=== PATIENT | female | born 1965 | race Caucasian/White ===

== ENCOUNTER → 2016-07-09 | Outpatient (CLI) | payer OTHER ==
[~2016-07-09] MED LIST: HYDR-5688 PO; OMEP20CA59 PO
[2016-07-09 14:00] LABS: BASO % 0.2 %; BASO ABS # 0.02 K/uL (0-0.2); COMPLETE YES; HEMATOCRIT 38.6 % (37-47); IG% 0.4 %; LYMPH % 32.6 %; LYMPH ABS # 2.73 K/uL (1.2-3.4); MEAN CELL VOLUME 91.3 fL (80-100); MEAN CORPUSCULAR HEMOGLOBIN 30.3 pg (25-34); MEAN CORPUSCULAR HGB CONC 33.2 g/dl (32-36); MEAN PLATELET VOLUME 9.3 fL (7.4-10.4); MONO % 6.8 %; PLATELET COUNT 358 K/uL (130-400); RED BLOOD COUNT 4.23 M/uL (4.2-5.4); WHITE BLOOD COUNT 8.38 K/uL (4.8-10.8)
[2016-07-09 14:05] LABS: ALT/SGPT 31 U/L (12-78); BLOOD UREA NITROGEN 15 mg/dl (7-18); BUN/CREATININE RATIO 20.5 (10-20); CARBON DIOXIDE 26 mmol/L (21-32); CHLORIDE 105 mmol/L (98-107); CHOLESTEROL 158 mg/dl (0-200); CREATININE 0.73 mg/dl (0.60-1.20); GLUCOSE 89 mg/dl (70-99); POTASSIUM 3.9 mmol/L (3.5-5.1); SODIUM 141 mmol/L (136-145); TRIGLYCERIDES 104 mg/dl (0-150); VERY LOW DENSITY LIPOPROT CALC 21 mg/dl
[2016-07-09 14:07] LABS: ALB/GLOB RATIO 1.2 (0.9-2); ALKALINE PHOSPHATASE 120 U/L (45-117); AST/SGOT 21 U/L (15-37); CHOLESTEROL/HDL RATIO 2.5; HDL CHOLESTEROL 64 mg/dl; LDL CHOLESTEROL CALCULATED 73 mg/dl
== END | disposition home or self-care (01) ==
LOC: C.LABSPEC 15:13 → MERGE 15:13
PROVIDERS: ATTEND Family Medicine
DX: K21.9 Gastro-esophageal reflux disease without esophagitis (principal); G47.00 Insomnia, unspecified; Z00.00 Encounter for general adult medical examination without abnormal findings

== ENCOUNTER 2016-09-12 09:46 | Day surgery (SDC) | payer OTHER ==
[2016-08-20 14:47] VITALS: BMI 32.0
--- NOTE | 2016-08-20 15:09 | PAT Medication Instructions ---
Service Date Aug 20, 2016. Current Home Medication List Omeprazole (Prilosec), 20 MG PO QAM Medication Instructions For Your Scheduled Surgery - Take the following medications the morning of surgery with a sip of water OTHERWISE NOTHING TO EAT OR DRINK AFTER MIDNIGHT: Omeprazole (Prilosec), 20 MG PO QAM If you have any questions please call us at [phone] or [phone] or [phone]
--- NOTE | 2016-08-20 15:46 | DIAGNOSTIC IMAGING REPORT ---
CHEST 2 VIEWS ROUTINE CLINICAL HISTORY: pat preoperative evaluation COMPARISON STUDY: No previous studies for comparison. FINDINGS: The bones soft tissues and hemidiaphragms are normal. The cardiomediastinal silhouette is normal. The lungs are clear. The pulmonary vasculature is normal. IMPRESSION: Negative chest. Electronically signed by: Sarath Abarca M.D. 08/20/2016 3:45 PM Dictated Date/Time: 08/20/2016 3:45 PM
[2016-08-20 16:10] LABS: BASO % 0.3 %; BASO ABS # 0.02 K/uL (0-0.2); COMPLETE YES; EOS % 2.2 %; HEMATOCRIT 40.6 % (37-47); IG% 0.1 %; LYMPH ABS # 3.44 K/uL (1.2-3.4); MEAN CELL VOLUME 92.5 fL (80-100); MEAN CORPUSCULAR HEMOGLOBIN 31.2 pg (25-34); MEAN CORPUSCULAR HGB CONC 33.7 g/dl (32-36); MEAN PLATELET VOLUME 9.4 fL (7.4-10.4); NEUT % 47.4 %; PLATELET COUNT 333 K/uL (130-400); RED BLOOD COUNT 4.39 M/uL (4.2-5.4); WHITE BLOOD COUNT 7.65 K/uL (4.8-10.8)
[2016-08-20 16:34] LABS: BUN/CREATININE RATIO 16.6 (10-20); CALCIUM 9.5 mg/dl (8.5-10.1); CREATININE 0.71 mg/dl (0.60-1.20); POTASSIUM 4.2 mmol/L (3.5-5.1)
[~2016-09-12] VITALS: Ht 165.1 cm; Wt 88.1 kg
[~2016-09-12 09:46] MED LIST changes: +DEXAMETHASONE SOD INJ 4 MG/ML VIAL ONE; +FENTANYL CITRATE INJ 50 MCG/1 ML 2 ML VIAL ONE; +GLYCOPYRROLATE INJ 0.2 MG/ML VIAL ONE; -HYDR-5688 PO; +LACTATED RINGER'S 1000ML 1,000 ML IV SCH; +LIDOCAINE HCL 2% 2 ML VIAL (20MG/ML) ONE; +MIDAZOLAM HCL 1 MG/ML 2ML VIAL ONE; +NEOSTIGMINE METHYLSULFATE 5 MG/5 ML SYR ONE; +ONDANSETRON INJ 2 MG/ML 2 ML VIAL ONE; +PROPOFOL IV EMULSION 10 MG/ML 20 ML VIAL IV ONE; +ROCURONIUM BROMIDE 10 MG/ML 5 ML VIAL ONE
[2016-09-12] MEDS ORDERED: HYDROmorphone INJ 2 MG/ML SYR/VIAL ONE (10:09)
[2016-09-12 10:16] VITALS: BP 146/77; PULSE 102; TEMP 36.9; O2SAT 94; Ht 165.1 cm; Wt 88.1 kg
[2016-09-12] MEDS ORDERED: ROCURONIUM BROMIDE 10 MG/ML 5 ML VIAL ONE ×2 (10:50)
[2016-09-12] MEDS ORDERED: FENTANYL CITRATE INJ 50 MCG/1 ML 2 ML VIAL ONE ×3 (11:27→13:57)
--- NOTE | 2016-09-12 12:02 | History and Physical ---
History & Physical Date Sep 12, 2016. History of Present Illness The patient is a 51 year old female with complaints of symptomatic cholelithiasis seen in office [place] 1 month ago and here for surgery no changes in h and p since last seen SO at bedside Additional History Hepatic Disease: No Endocrine Disorder: No Kidney Disease: No Hypertension: No Heart Disease: No Bleeding Tendencies: No Infectious Diseases: No Allergies Coded Allergies: No Known Allergies (Unverified , 08/20/16) Home Medications Scheduled Omeprazole (Prilosec), 20 MG PO QAM Physical Examination Skin: warm/dry, no rash Eyes: sclerae normal ENT: pharynx normal Head: normocephalic, atraumatic Neck: supple, no adenopathy, trachea midline Respiratory/Chest: lungs clear, normal breath sounds, no respiratory distress Cardiovascular: regular rate, rhythm, no edema, no murmur Abdomen / GI: non tender (no masses no hernias) Back: normal inspection Extremities: normal inspection, normal range of motion Neurologic/Psych: no motor/sensory deficits, alert, normal reflexes, oriented x 3 Addiitonal Comments: see h and p recently dictated in office Diagnosis symptomatic cholelithiasis Plan of Treatment lap cholecystectomy, c'gram r and comp explained again to pt
[2016-09-12] MEDS ORDERED: LIDOCAINE/EPINEPHRINE 1% 20 ML VIAL ONE (12:07)
[2016-09-12] MEDS ORDERED: CEFAZOLIN SOD 1 GM VIAL ONE (12:24)
[2016-09-12] MEDS ORDERED: PROMETHAZINE HCL INJ 12.5 MG in SODIUM CHLORIDE 0.9% 50ML 50 ML IV PRN (13:15)
[2016-09-12] MEDS ORDERED: ONDANSETRON INJ 2 MG/ML 2 ML VIAL IV PRN ×2 (13:15→14:15)
[2016-09-12] MEDS ORDERED: EpHEDrine SULFATE INJ 50 MG/ML AMP IV PRN (13:15)
[2016-09-12] MEDS ORDERED: LABETALOL HCL IV 5 MG/ML 20ML IV PRN (13:15)
[2016-09-12] MEDS ORDERED: ATROPINE SULFATE 0.1 MG/ML 5ML SYR IV PRN (13:15)
[2016-09-12] MEDS ORDERED: NALOXONE HCL 0.4 MG/1 ML VIAL/CARP IV PRN (13:15)
--- NOTE | 2016-09-12 14:00 | History & Physical Bridge Note ---
H&P Re-Evaluation Bridge Note: I have examined the patient, reviewed the History & Physical and in the interval since the performance of the History & Physical I have noted the following changes of clinical significance: No changes noted SO at bedside headaches nena left more than right no visual issues will plan for left temp artery biopsy pt marked
--- NOTE | 2016-09-12 14:01 | [facility] Post Operative Brief Note ---
Immediate Operative Summary Operative Date Sep 12, 2016. Pre-Operative Diagnosis Symptomatic cholelithiasis, chronic cholecystitis Post-Operative Diagnosis same as pre-operative Procedure(s) Performed Laparoscopic Cholecystectomy with Cholangiogram Surgeon Dr. Kay Targeteer Surgeon(s) Alycia Rose PA-C Estimated Blood Loss 10 ml Specimens A. Gallbladder Drains 19 shantanu per stab
[2016-09-12] MEDS ORDERED: SODIUM CHLORIDE 0.9% 1000ML 1,000 ML IV SCH (14:07)
[2016-09-12] MEDS ORDERED: HYDR-5688 PO (14:09)
--- NOTE | 2016-09-12 14:09 | Medical Student: [facility] ---
Immediate Operative Summary Operative Date Sep 12, 2016. Pre-Operative Diagnosis cholelithiasis/ chronic cholecystitis Post-Operative Diagnosis same as above Procedure(s) Performed laparoscopic cholecystectomy with cholangiogram Surgeon Dr. Kay Song Lyricist Surgeon(s) Alycia Rose PA-C Estimated Blood Loss 10cc Findings normal-appearing inferior hepatic lobe, gallbladder w thickened wall Specimens gallbladder Anesthesia general Complication(s) None Disposition Recovery Room / PACU
[2016-09-12] MEDS: HYDROmorphone INJ 1 MG/ML SYR IV PRN ×8 (14:13→14:48)
--- NOTE | 2016-09-12 14:13 | Discharge Instructions ---
Discharge Instructions Date of Service Sep 12, 2016. Admission Reason for Admission: Cholelithiasis Discharge Discharge Diagnosis / Problem: Cholelithiasis Discharge Goals Goal(s): Decrease discomfort, Improve function Activity Recommendations Activity Limitations: as noted below Lifting Limitations: no more than 10 pounds Exercise/Sports Limitations: until after follow-up appointment May Resume Sexual Activity: after follow-up appointment Shower/Bathe: tomorrow Driving or Machine Use: resume 3 days after discharge . Instructions / Follow-Up Instructions / Follow-Up Please call the office to schedule follow-up appointment for drain removal at [phone]. Please call the office for follow-up appointment with Dr. Kay and Alycia Rose PA-C at [phone]. Any questions, please call the office at [phone]. Current Hospital Diet Patient's current hospital diet: Discharge Diet Recommended Diet: Regular Diet Procedures Procedures Performed: Laparoscopic Cholecystectomy with Cholangiogram Pending Studies Studies pending at discharge: no Laboratory Results Lipid Panel Test 07/09/16 10:11 Range/Units Triglycerides Level 104 0-150 mg/dl Cholesterol Level 158 0-200 mg/dl HDL Cholesterol 64 mg/dl Cholesterol/HDL Ratio 2.5 LDL Cholesterol, Calculated 73 mg/dl Medical Emergencies . Who to Call and When: Medical Emergencies: If at any time you feel your situation is an emergency, please call 911 immediately. . Non-Emergent Contact Non-Emergency issues call your: Primary Care Provider, Surgeon Call Non-Emergent contact if: temperature is above 101, your pain is not controlled, wound has increased drainage, wound has increased redness . "Provider Documentation" section prepared by Alycia Rose. VTE Core Measure Inpt VTE Proph given/why not?: Unfractionated heparin SQ, SCD's
[2016-09-12] MEDS ORDERED: KETOROLAC TROMETHAMINE 30 MG/ML VIAL IV. PRN (14:15)
[2016-09-12] MEDS ORDERED: HYDROCODONE/ACETAMOPHEN 5/325MG TAB PO PRN ×2 (14:15)
--- NOTE | 2016-09-12 14:33 | DIAGNOSTIC IMAGING REPORT ---
INTRAOPERATIVE CHOLANGIOGRAM CLINICAL HISTORY: Intraoperative cholangiogram. COMPARISON STUDY: None. FLUOROSCOPY TIME: 3 seconds. FINDINGS: 3 fluoroscopic images of the right upper quadrant were obtained during an intraoperative cholangiogram. No filling defect is identified to suggest a common bile duct calculi. There is apparent irregular narrowing of the distal common bile duct. There is borderline intra and extra hepatic biliary ductal dilatation. Note is made of contrast within the duodenum. IMPRESSION: 1. No evidence of choledocholithiasis. 2. Borderline intra and extrahepatic biliary ductal dilatation. In addition, irregular narrowing of the distal common bile is noted although can be seen in normal patients. Correlation with follow-up postoperative liver function tests is recommended. Electronically signed by: Santos Rondon M.D. 09/12/2016 2:32 PM Dictated Date/Time: 09/12/2016 2:30 PM
--- NOTE | 2016-09-12 14:45 | OPERATIVE REPORT ---
DATE OF OPERATION: 09/12/2016 PREOPERATIVE DIAGNOSIS: Chronic cholecystitis, cholelithiasis. POSTOPERATIVE DIAGNOSIS: Same. PROCEDURE: Laparoscopic cholecystectomy, intraoperative cholangiogram. SURGEON: Dr. Kay. REPRESENTATIVE PERSONAL SERVICE: Alycia Rose PA-C. OPERATION AND FINDINGS: SUMMARY: The patient was brought into the operating room theater. The abdomen was prepped with Betadine scrubbing solution and properly draped. A time-out was had. A small incision was made supraumbilically. Veress introduced into the abdomen, CO2 insufflated followed by 5 mm trocar. Point of entry inspected and no injury identified. Under direct visualization, a 5 mm epigastric, two 5 mm subcostal ports were placed with preemptive analgesia 1% Xylocaine without epinephrine. The gallbladder was appreciated. It was really thick walled. We elevated with lateral grasper, maneuvered the medial most grasper until we developed a window around the cystic duct, clipped it proximally. A #4 urethral catheter transversing abdominal wall positioned in the cystic duct. Serial x-rays were taken which showed free flow into duodenum. No obvious obstruction. Left hepatic radicle was just visualized at its takeoff maybe just for timing peters. The distal common bile duct appeared to be a little tapered in nature but no filling defects was appreciated. At this point the cholangiocatheter was removed. The cystic duct was doubly clipped and divided. The arteries were identified, doubly clipped and divided. Gallbladder was taken out in the antegrade fashion using electrocautery. Of note, the gallbladder was extremely thick-walled, I was even concerned the possibility that there may be a significant mass on the wall, but we were able to leave as much posterior peritoneum as possible, though there was no real plane to enter the liver area. A few bleeders along the liver were cauterized. Finally, the gallbladder was removed from the liver bed. The area was suctioned out and cauterized significantly. Gallbladder was placed in an Endopouch and taken out intact through the epigastric port. I looked at it at the end, it was thick-walled, probably about 5 mm in thickness, but no evidence of any other masses that I could see grossly. At this point the subhepatic and suprahepatic area was checked for hemostasis and appeared satisfactory. We placed a 5 mm trocar in the lateral subcostal port to visualize the umbilical opening. No adhesions there were identified. I elected to drain the area with 19 Osvaldo drain. There was some bleeding on right lobe of the liver just adjacent to the gallbladder that we cauterized but nothing significant, but given the severity of the dissection that we had to do almost no posterior peritoneum into the gallbladder, so we elected to place a 19 Osvaldo drain in the subhepatic area, taken out lateral port site, attached to skin edges with 2-0 silk suture. Individual trocars removed, last umbilical trocar. Wounds were closed with 4-0 Monocryl. Steri-Strips applied. The procedure was tolerated well by the patient. Estimated blood loss approximately 10 mL. The patient was taken to recovery room in good condition. I attest to the content of the Intraoperative Record and any orders documented therein. Any exceptio ns are noted below.
[2016-09-12] MEDS ORDERED: CONRAY 60% 50 ML VIAL FLUSH ONE (14:54)
[2016-09-12] MEDS ORDERED: KETOROLAC TROMETHAMINE 30 MG/ML VIAL IV STA (15:01)
[2016-09-12 15:34] VITALS: BP 141/75; PULSE 95; TEMP 36.5; O2SAT 94
[2016-09-12 16:04] VITALS: BP 128/68; PULSE 92; O2SAT 92
[2016-09-12 16:35] VITALS: BP 132/71; PULSE 86; TEMP 36.5; O2SAT 94
[2016-09-12 17:15] VITALS: BP 134/76; PULSE 85; TEMP 36.4; O2SAT 92
--- NOTE | 2016-09-29 23:27 | Anesthesiology Progress Note ---
Anesthesia Post Op Note Date & Time Sep 29, 2016 at 23:27 Vital Signs Pain Intensity: 4 Notes Mental Status: alert / awake / arousable, participated in evaluation Pt Amnestic to Procedure: Yes Nausea / Vomiting: adequately controlled Pain: adequately controlled Airway Patency, RR, SpO2: stable & adequate BP & HR: stable & adequate Hydration State: stable & adequate Anesthetic Complications: no major complications apparent
== END 2016-09-12 17:40 | disposition home or self-care (01) ==
LOC: C.ACU 09:46
PROVIDERS: ATTEND Surgery
DX: K80.10 Calculus of gallbladder with chronic cholecystitis without obstruction (principal)

== ENCOUNTER → 2017-07-09 | Outpatient (CLI) | payer OTHER ==
[~2017-07-09] MED LIST changes: -DEXAMETHASONE SOD INJ 4 MG/ML VIAL ONE; -FENTANYL CITRATE INJ 50 MCG/1 ML 2 ML VIAL ONE; -GLYCOPYRROLATE INJ 0.2 MG/ML VIAL ONE; -LACTATED RINGER'S 1000ML 1,000 ML IV SCH; -LIDOCAINE HCL 2% 2 ML VIAL (20MG/ML) ONE; -MIDAZOLAM HCL 1 MG/ML 2ML VIAL ONE; -NEOSTIGMINE METHYLSULFATE 5 MG/5 ML SYR ONE; -ONDANSETRON INJ 2 MG/ML 2 ML VIAL ONE; -PROPOFOL IV EMULSION 10 MG/ML 20 ML VIAL IV ONE; -ROCURONIUM BROMIDE 10 MG/ML 5 ML VIAL ONE
[2017-07-09 12:58] LABS: BASO % 0.2 %; BASO ABS # 0.02 K/uL (0-0.2); EOS % 2.4 %; EOS ABS # 0.19 K/uL (0-0.5); HEMATOCRIT 39.9 % (37-47); HEMOGLOBIN 13.3 g/dL (12.0-16.0); IG# 0.02 K/uL (0.00-0.02); LYMPH % 38.3 %; LYMPH ABS # 3.07 K/uL (1.2-3.4); MEAN CELL VOLUME 92.8 fL (80-100); MEAN CORPUSCULAR HEMOGLOBIN 30.9 pg (25-34); MEAN CORPUSCULAR HGB CONC 33.3 g/dl (32-36); MEAN PLATELET VOLUME 9.2 fL (7.4-10.4); MONO % 5.7 %; MONO ABS # 0.46 K/uL (0.11-0.59); NEUT % 53.2 %; NEUT ABS # 4.26 K/uL (1.4-6.5); PLATELET COUNT 373 K/uL (130-400); RED CELL DISTRIBUTION WIDTH SD 47.2 fL (36.4-46.3); WHITE BLOOD COUNT 8.02 K/uL (4.8-10.8)
[2017-07-09 13:36] LABS: ALBUMIN 3.5 gm/dl (3.4-5.0); ALT/SGPT 30 U/L (12-78); BLOOD UREA NITROGEN 11 mg/dl (7-18); CALCIUM 8.9 mg/dl (8.5-10.1); CARBON DIOXIDE 25 mmol/L (21-32); CHOLESTEROL 124 mg/dl (0-200); CREATININE 0.75 mg/dl (0.60-1.20); GLUCOSE 96 mg/dl (70-99); POTASSIUM 4.4 mmol/L (3.5-5.1); SODIUM 138 mmol/L (136-145)
[2017-07-09 13:40] LABS: ALKALINE PHOSPHATASE 100 U/L (45-117); AST/SGOT 18 U/L (15-37); LDL CHOLESTEROL CALCULATED 62 mg/dl
== END | disposition home or self-care (01) ==
LOC: C.LABSPEC 12:24
PROVIDERS: ATTEND Family Medicine
DX: Z00.00 Encounter for general adult medical examination without abnormal findings (principal); K21.9 Gastro-esophageal reflux disease without esophagitis; Z72.0 Tobacco use